=== PATIENT | female | born 1955 | race Caucasian/White ===

== ENCOUNTER 2019-11-27 14:16 | Inpatient (IN) | payer OTHER, MEDICAID ==
[~2019-11-27] VITALS: Ht 167.6 cm; Wt 108.4 kg
[2019-11-27 15:12] LABS: Anion Gap 7 (5-15); Blood Urea Nitrogen 43 mg/dL (7-18); Calcium 8.5 mg/dL (8.5-10.1); Carbon Dioxide 29 mmol/L (21-32); Chloride 100 mmol/L (98-107); Glucose 346 mg/dL (74-106); Magnesium 2.5 mg/dL (1.6-2.6); Potassium 4.2 mmol/L (3.5-5.1); Sodium 136 mmol/L (136-145)
[2019-11-27 15:18] LABS: Alanine Aminotransferase 28 U/L (13-56); Alkaline Phosphatase 101 U/L (45-117); Aspartate Aminotransferase 16 U/L (15-37); BUN/Creatinine Ratio 20.6; Bilirubin, Total 0.7 mg/dL (0.2-1.0); GFR African American 31 mL/min; GFR Non-African American 26 mL/min; Total Protein 7.5 g/dL (6.4-8.2)
[2019-11-27 15:38] LABS: INR 1.04 (0.9-1.15); Partial Thromboplastin Time 23.9 sec (23.64-32.05)
[2019-11-27 15:51] LABS: Basophils # (auto) 0.1 10 ^3/uL (0-0.2); Basophils % (auto) 0.8 % (0.0-2.0); Eosinophils # (auto) 0.3 10 ^3/uL (0-0.8); Eosinophils % (auto) 4.8 % (0.0-7.0); Hematocrit 30.1 % (36.0-46.0); Hemoglobin 10.6 g/dL (12.2-16.2); Lymphocytes # (auto) 1.6 10 ^3/uL (0.4-5.4); Lymphocytes % (auto) 22.6 % (10.0-50.0); Mean Corpuscular Hemoglobin 32.9 pg (28.0-32.0); Mean Corpuscular Hgb Conc. 35.1 g/dL (32.0-36.0); Mean Corpuscular Volume 93.7 fL (80.0-100.0); Monocytes # (auto) 0.6 10 ^3/uL (0-1.3); Monocytes % (auto) 7.9 % (0.0-12.0); Neutrophils # (auto) 4.5 10 ^3/uL (1.6-8.6); Neutrophils % (auto) 63.9 % (37.0-80.0); Platelet Count (auto) 136 10^3/uL (140-450); Red Blood Cells 3.21 10^6/uL (4.0-5.20); Red Cell Distribution Width 12.6 % (11.8-14.3)
[2019-11-27] MEDS ORDERED: NITROGLYCERIN 0.4 MG SL TAB SL PRN (17:45)
[2019-11-27] MEDS ORDERED: MORPHINE SULF INJ 2 MG/ML SYRINGE 1ML IV PRN ×2 (17:45→18:00)
[2019-11-27] MEDS ORDERED: IPRATROPIUM BROM 0.5 MG/2.5ML INH SOL NEB PRN (18:00)
[2019-11-27] MEDS ORDERED: ALBUTEROL SULF 2.5 MG/0.5ML(0.5%) NEB SOLN NEB PRN (18:00)
[2019-11-27] MEDS ORDERED: HYDROcodone-ACET 5/325MG TAB PO PRN (18:00)
[2019-11-27] MEDS ORDERED: ONDANSETRON HCL 4 MG/2 ML VIAL IV PRN (18:00)
[2019-11-27] MEDS ORDERED: DEXTROSE (50%) 50ML SYRG IV PRN (18:00)
[2019-11-27] MEDS ORDERED: ACETAMINOPHEN 500 MG TAB PO PRN (18:00)
[2019-11-27] MEDS: SODIUM CHLORIDE 0.9% 1,000 ML IV SCH (18:25)
[2019-11-27 18:42] VITALS: BP 151/69
[2019-11-27 21:00] VITALS: BP 147/76
--- NOTE | 2019-11-27 21:31 | NUR ---
Telemetry admit from [facility] admitted to Telemetry unit after SBAR received. Patient oriented to KELVIN ALCANTAR, MARY LOU primary RN, unit, room 214, bed B and unit policies regarding patient care and visiting hours. Patient now on continuous telemetry monitoring, tele box #43 and telemetry reading on arrival to unit is SR 68. Patient VS taken, weighed by bedscale and encouraged to call if they need something. All questions and concerns addressed, patient verbalized understanding.
[2019-11-27] MEDS: ACCU-CHEK COMFORT CURVE STRIP VI SCH (22:06)
[2019-11-27] MEDS: InsuLIN REG 1unit/0.01ml Soln (100units/ml) SC SCH (22:06)
[2019-11-27 23:30] VITALS: BP 147/76
[2019-11-28 05:22] VITALS: BP 152/61
[2019-11-28 05:30] LABS: Basophils # (auto) 0 10 ^3/uL (0-0.2); Basophils % (auto) 0.5 % (0.0-2.0); Eosinophils # (auto) 0.3 10 ^3/uL (0-0.8); Eosinophils % (auto) 3.5 % (0.0-7.0); Hematocrit 29.7 % (36.0-46.0); Hemoglobin 10.5 g/dL (12.2-16.2); Lymphocytes # (auto) 1.7 10 ^3/uL (0.4-5.4); Lymphocytes % (auto) 22.3 % (10.0-50.0); Mean Corpuscular Hemoglobin 32.8 pg (28.0-32.0); Mean Corpuscular Hgb Conc. 35.3 g/dL (32.0-36.0); Mean Corpuscular Volume 92.8 fL (80.0-100.0); Monocytes # (auto) 0.5 10 ^3/uL (0-1.3); Monocytes % (auto) 6.5 % (0.0-12.0); Neutrophils # (auto) 5.2 10 ^3/uL (1.6-8.6); Neutrophils % (auto) 67.2 % (37.0-80.0); Nucleated Red Blood Cells % 0.1 %; Platelet Count (auto) 137 10^3/uL (140-450); Red Cell Distribution Width 12.9 % (11.8-14.3); White Blood Cell 7.7 10^3/uL (4.4-10.8)
[2019-11-28 05:43] LABS: Calcium 8.6 mg/dL (8.5-10.1); Potassium 4.3 mmol/L (3.5-5.1)
[2019-11-28 05:48] LABS: BUN/Creatinine Ratio 21.3
[2019-11-28] MEDS: ACCU-CHEK COMFORT CURVE STRIP VI SCH ×4 (06:40→22:20)
[2019-11-28] MEDS: InsuLIN REG 1unit/0.01ml Soln (100units/ml) SC SCH ×3 (06:42→17:00)
--- NOTE | 2019-11-28 07:11 | NUR ---
Respiratory note: HR 78, RR 14, SPO2 98% ON RA, BS CLEAR. PRN MED NEB TX NOT INDICATED AT THIS TIME. NO SIGNS OR SYMPTOMS OF RESPIRATORY DISTRESS NOTED AT THIS TIME.PT INFORMED TO HIT CALL BUTTON IF FEELING SOB OR WHEEZING
[2019-11-28] MEDS: SODIUM CHLORIDE 0.9% 1,000 ML IV SCH ×2 (07:20→20:40)
--- NOTE | 2019-11-28 07:20 | NUR ---
OPENING NOTE ASSUMED CARE OF PT. ALERT AND ORIENTED. NO S/S OF SOB/DISTRESS NOTED. BED SET TO LOWEST POSITION/LOCKED. BEDSIDE RAILS UP X2. CALL LIGHT WITHIN REACH. INSTRUCTED PATIENT TO CALL FOR ASSISTANCE. UPDATED PT ON PLAN OF CARE. PT VERBALIZED UNDERSTANDING. WILL CONTINUE TO MONITOR Q1HR AND PRN.
[2019-11-28] MEDS ORDERED: AMLO5TAB15 PO (07:35)
[2019-11-28 08:00] VITALS: BP 153/57
[2019-11-28] MEDS: FAMOTIDINE 20 MG TAB PO SCH (09:54)
[2019-11-28 12:00] VITALS: BP 158/69
[2019-11-28] MEDS ORDERED: INSLISPI SC ×2 (15:44)
[2019-11-28] MEDS ORDERED: FURO40TA4 PO (15:44)
[2019-11-28] MEDS ORDERED: TRAM50TA2 PO (15:44)
[2019-11-28] MEDS ORDERED: CLON0.2D6 PO (15:44)
[2019-11-28] MEDS ORDERED: CARV12.544 PO (15:44)
[2019-11-28] MEDS ORDERED: BENA40TA7 PO (15:44)
[2019-11-28] MEDS ORDERED: MONT10TA34 OR (15:44)
[2019-11-28] MEDS ORDERED: INSLANTI SC (15:44)
[2019-11-28] MEDS ORDERED: CHOL20007 PO (15:44)
[2019-11-28] MEDS ORDERED: SITA100T7 PO (15:44)
[2019-11-28] MEDS ORDERED: METF-370 PO (15:44)
[2019-11-28] MEDS ORDERED: ATOR40TA52 PO (15:44)
[2019-11-28] MEDS ORDERED: FOLI1TAB6 PO (15:44)
[2019-11-28] MEDS ORDERED: GABA300C10 PO (15:44)
[2019-11-28 17:00] VITALS: BP 156/68
--- NOTE | 2019-11-28 17:02 | NUR ---
URINE URINE SAMPLE COLLECTED AND SENT TO LAB.
[2019-11-28] MEDS ORDERED: metFORMIN HYDROCHLORIDE 500 MG TAB PO SCH (18:00)
[2019-11-28] MEDS: FUROSEMIDE 40 MG TAB PO SCH (18:00)
[2019-11-28] MEDS: Glucerna Carbsteady SHAKE Vanilla 8oz PO SCH (18:00)
--- NOTE | 2019-11-28 18:12 | NUR ---
PT ASSESSED FOR PRN MED NEB TX. SPO2 97% ON RA, HR 74. PT DENIES ANY RESPIRATORY DISTRESS. NO TX INDICATED. WILL CONTINUE TO MONITOR.
[2019-11-28 18:34] LABS: Urine Bacteria MANY /hpf (None Seen); Urine Blood 2+ /uL (Negative); Urine Specific Gravity 1.014 (1.001-1.035); Urine WBC 2508 /hpf (0 - 5); Urine WBC Clumps PRESENT /hpf (None Seen)
[2019-11-28] MEDS ORDERED: DEXTROSE (50%) 50ML SYRG IV PRN (20:30)
[2019-11-28] MEDS: cloNIDine HCL 0.1 MG TAB PO SCH (20:47)
[2019-11-28] MEDS: ATORVASTATIN 20 MG TAB PO SCH (20:48)
[2019-11-28] MEDS: GABAPENTIN 300 MG CAP PO SCH (20:48)
[2019-11-28] MEDS: CARVEDILOL 12.5 MG TAB PO SCH (20:48)
[2019-11-28 22:00] VITALS: BP 171/78
[2019-11-28] MEDS ORDERED: INSULIN LANTUS (GLARGINE) 1 /0.01ml (100units/ml) SC SCH (22:00)
[2019-11-28] MEDS ORDERED: InsuLIN REG 1unit/0.01ml Soln (100units/ml) SC SCH (22:00)
[2019-11-29 05:04] VITALS: BP 142/67
[2019-11-29] MEDS: FUROSEMIDE 40 MG TAB PO SCH ×2 (06:08→18:30)
[2019-11-29] MEDS: ACCU-CHEK COMFORT CURVE STRIP VI SCH ×4 (06:34→22:23)
[2019-11-29 06:49] LABS: Basophils # (auto) 0 10 ^3/uL (0-0.2); Basophils % (auto) 0.4 % (0.0-2.0); Eosinophils # (auto) 0.2 10 ^3/uL (0-0.8); Eosinophils % (auto) 2.2 % (0.0-7.0); Hematocrit 29.2 % (36.0-46.0); Hemoglobin 10.2 g/dL (12.2-16.2); Lymphocytes # (auto) 1.3 10 ^3/uL (0.4-5.4); Lymphocytes % (auto) 19.4 % (10.0-50.0); Mean Corpuscular Volume 94.4 fL (80.0-100.0); Monocytes # (auto) 0.5 10 ^3/uL (0-1.3); Monocytes % (auto) 6.9 % (0.0-12.0); Neutrophils # (auto) 4.9 10 ^3/uL (1.6-8.6); Neutrophils % (auto) 71.1 % (37.0-80.0); Platelet Count (auto) 125 10^3/uL (140-450); Red Cell Distribution Width 12.5 % (11.8-14.3)
[2019-11-29 07:00] LABS: Anion Gap 4 (5-15); BUN/Creatinine Ratio 18.1; Blood Urea Nitrogen 28 mg/dL (7-18); Calcium 8.9 mg/dL (8.5-10.1); Carbon Dioxide 28 mmol/L (21-32); Chloride 106 mmol/L (98-107); GFR African American 44 mL/min; GFR Non-African American 36 mL/min; Glucose 361 mg/dL (74-106); Potassium 4.5 mmol/L (3.5-5.1); Sodium 138 mmol/L (136-145)
[2019-11-29] MEDS ORDERED: InsuLIN REG 1unit/0.01ml Soln (100units/ml) SC SCH (07:00)
--- NOTE | 2019-11-29 07:35 | NUR ---
Opening Shift Note Assumed care of patient, awake and alert. No S/S of distress/SOB or pain reported at this time, currently on room air, noted BLE +2 edema, no pain reported. Instructed on POC and to call for assist PRN, call light within reach, will continue to monitor for changes Q1hr and PRN.
[2019-11-29 08:00] VITALS: BP 141/70
[2019-11-29] MEDS: Glucerna Carbsteady SHAKE Vanilla 8oz PO SCH ×3 (08:00→18:25)
--- NOTE | 2019-11-29 08:00 | NUR ---
Respiratory note: PT IS RESTING COMFORTABLY. IS IN NO RESPIRATORY DISTRESS. SPO2 97% ON RA, HR 71, RR 18, BS CLEAR BILATERALLY. PRN MEDNEB TX NOT INDICATED. PT INFORMED TO PUSH CALL BUTTON IF INCREASED WOB, SOB, OR WHEEZING OCCURS.
[2019-11-29] MEDS ORDERED: cefTRIAXone 1GM/50ML D5W 50 ML IV ONE (09:45)
[2019-11-29] MEDS: SODIUM CHLORIDE 0.9% 1,000 ML IV SCH ×2 (10:00→23:20)
[2019-11-29] MEDS: BENAZEPRIL HCL 10 MG TAB PO SCH ×2 (10:00→10:39)
[2019-11-29] MEDS: cloNIDine HCL 0.1 MG TAB PO SCH ×2 (10:39→22:28)
[2019-11-29] MEDS: FAMOTIDINE 20 MG TAB PO SCH (10:40)
[2019-11-29] MEDS: CARVEDILOL 12.5 MG TAB PO SCH ×2 (10:40→22:27)
[2019-11-29 12:00] VITALS: BP 150/79
--- NOTE | 2019-11-29 12:00 | NUR ---
CRITICAL BS BS 430, REPEATED AND BS 456, PT ASYMPTOMATIC, DR CARREON NOTIFIED, ORDERS RECEIVED TO CHANGE SLIDING SCALE TO AGGRESSIVE, CONT CARE
--- NOTE | 2019-11-29 12:20 | NUR ---
COVERED CRITICAL BS WITH 20 UNITS PER AGGRESSIVE SLIDING SCALE PER DR RODRIGUEZ, CONT CARE
[2019-11-29] MEDS: InsuLIN REG 1unit/0.01ml Soln (100units/ml) SC SCH ×3 (12:30→22:22)
--- NOTE | 2019-11-29 13:39 | NUR ---
CARDIO AT BEDSIDE DR NELSON AT BEDSIDE DISCUSSING POC, CONT CARE
[2019-11-29] MEDS ORDERED: DEXTROSE (50%) 50ML SYRG IV PRN (13:45)
--- NOTE | 2019-11-29 13:50 | NUR ---
BS 400 NO NEW ORDERS TO ADMINISTER INSULIN, PT ASYMPTOMATIC, NO C/O OF ANY DISTRESS, CALL LIGHT WITHIN REACH, CONT CARE
[2019-11-29 16:57] VITALS: BP 137/73
[2019-11-29] MEDS: metFORMIN HYDROCHLORIDE 500 MG TAB PO SCH (18:30)
--- NOTE | 2019-11-29 19:20 | NUR ---
Opening Shift Note Assumed care of patient, awake and alert. No S/S of distress/SOB or pain. Instructed on POC and to call for assistance PRN, will continue to monitor for changes Q1hr and PRN. Safety precautions maintained bed is in lowest position and bed rails 2x. Call light and bedside table are within reach.
--- NOTE | 2019-11-29 20:00 | NUR ---
Respiratory note: PT ASSESSED FOR PRN MED NEB TX. HR 73, RR 16, SPO2 96% ON RA. NO SIGNS OF ANY RESPIRATORY DISTRESS NOTED. ADVISED PT TO CALL IF TX IS NEEDED.
[2019-11-29 22:00] VITALS: BP 156/67
[2019-11-29] MEDS: INSULIN LANTUS (GLARGINE) 1 /0.01ml (100units/ml) SC SCH (22:22)
[2019-11-29] MEDS: GABAPENTIN 300 MG CAP PO SCH (22:26)
[2019-11-29] MEDS: ATORVASTATIN 20 MG TAB PO SCH (22:26)
[2019-11-29] MEDS ORDERED: LORazepam 2MG/ML-1ML VIAL IV PRN (22:30)
[2019-11-30 04:56] VITALS: BP 142/73
[2019-11-30] MEDS: FUROSEMIDE 40 MG TAB PO SCH (06:15)
[2019-11-30 06:29] LABS: Basophils # (auto) 0 10 ^3/uL (0-0.2); Basophils % (auto) 0.6 % (0.0-2.0); Eosinophils # (auto) 0.2 10 ^3/uL (0-0.8); Eosinophils % (auto) 3.3 % (0.0-7.0); Hematocrit 28.4 % (36.0-46.0); Hemoglobin 10.2 g/dL (12.2-16.2); Lymphocytes # (auto) 1.6 10 ^3/uL (0.4-5.4); Lymphocytes % (auto) 21.2 % (10.0-50.0); Mean Corpuscular Hemoglobin 33.5 pg (28.0-32.0); Mean Corpuscular Hgb Conc. 35.8 g/dL (32.0-36.0); Mean Corpuscular Volume 93.5 fL (80.0-100.0); Monocytes # (auto) 0.5 10 ^3/uL (0-1.3); Monocytes % (auto) 6.4 % (0.0-12.0); Neutrophils # (auto) 5.1 10 ^3/uL (1.6-8.6); Neutrophils % (auto) 68.5 % (37.0-80.0); Platelet Count (auto) 128 10^3/uL (140-450); Red Blood Cells 3.04 10^6/uL (4.0-5.20); Red Cell Distribution Width 12.7 % (11.8-14.3); White Blood Cell 7.4 10^3/uL (4.4-10.8)
[2019-11-30 06:51] LABS: Calcium 8.8 mg/dL (8.5-10.1)
[2019-11-30] MEDS: InsuLIN REG 1unit/0.01ml Soln (100units/ml) SC SCH ×4 (06:54→22:13)
[2019-11-30 06:55] LABS: BUN/Creatinine Ratio 17.6
[2019-11-30] MEDS: ACCU-CHEK COMFORT CURVE STRIP VI SCH ×4 (07:02→22:01)
--- NOTE | 2019-11-30 08:29 | NUR ---
Respiratory note: PRN MED NEB TX NOT INDICATED OR WANTED BY PT. PT HAS NOT TAKEN ANY PRN MED NEB TXS. HR 77, RR 14, SPO2 98% ON RA. BS CLEAR. NO SIGNS OR SYMPTOMS OF RESPIRATORY DISTRESS NOTED AT THIS TIME. Addendum: 11/30/19 at 0836 by CAROL ALVARADO RT PT STATES SHE HAS NOT TAKEN HER INHALER FOR OVER 7 MONTHS.
--- NOTE | 2019-11-30 08:30 | NUR ---
Dry, hyperpigmentation noted on the lower extremities. Scabbed, dry skin tears on the right great toe noted.
[2019-11-30] MEDS: Glucerna Carbsteady SHAKE Vanilla 8oz PO SCH ×3 (08:59→17:24)
[2019-11-30] MEDS: metFORMIN HYDROCHLORIDE 500 MG TAB PO SCH ×2 (08:59→17:30)
[2019-11-30] MEDS: cefTRIAXone 1GM/50ML D5W 50 ML IV SCH (09:00)
--- NOTE | 2019-11-30 09:00 | NUR ---
Accu check = 263 mg/dl. Metformin PO given.
[2019-11-30 09:01] VITALS: BP 134/77
[2019-11-30] MEDS: FAMOTIDINE 20 MG TAB PO SCH (09:24)
[2019-11-30] MEDS: CARVEDILOL 12.5 MG TAB PO SCH ×2 (09:24→21:59)
[2019-11-30] MEDS: BENAZEPRIL HCL 10 MG TAB PO SCH (09:24)
[2019-11-30] MEDS: cloNIDine HCL 0.1 MG TAB PO SCH ×2 (09:25→21:58)
[2019-11-30] MEDS: amLODIPine BESYLATE 5 MG TAB PO SCH (09:25)
--- NOTE | 2019-11-30 09:30 | NUR ---
Photos taken of the right great toe, left foot, bilateral lower extremities. Wound Care forms placed on the Wound Care tray. Camera returned to [facility].
--- NOTE | 2019-11-30 10:25 | NUR ---
Dr. Millard came over to see the patient. MD to keep the patient for another day. Dr. Millard ordered to follow up the Echo results as per Dr. Quintanilla.
--- NOTE | 2019-11-30 10:30 | NUR ---
Called Admissions Representative Unit. Phone on voicemail. Left a message to follow up the Echo results.
--- NOTE | 2019-11-30 10:40 | NUR ---
Spoke with JOSE ELIAS Hargrove regarding the Echo results unavailable at this time. Beena to follow up with Dr. Quintanilla.
[2019-11-30] MEDS: SODIUM CHLORIDE 0.9% 1,000 ML IV SCH (11:17)
[2019-11-30 12:39] VITALS: BP 138/74
[2019-11-30 16:49] VITALS: BP 120/66
--- NOTE | 2019-11-30 19:00 | NUR ---
Dr. Duran has seen the patient for follow up Neurology Consult.
--- NOTE | 2019-11-30 19:10 | NUR ---
Patient approached me at the Nurse Station, stated she wants to talk to the doctor who came over this morning. Explained to patient Dr. Millard will come back tomorrow.
[2019-11-30] MEDS: ATORVASTATIN 20 MG TAB PO SCH (21:58)
[2019-11-30 22:00] VITALS: BP 144/68
[2019-11-30] MEDS: GABAPENTIN 300 MG CAP PO SCH (22:00)
[2019-11-30] MEDS: INSULIN LANTUS (GLARGINE) 1 /0.01ml (100units/ml) SC SCH (22:15)
--- NOTE | 2019-12-01 00:33 | NUR ---
11/30/2019. 1939. MET PATIENT IN HER ROOM SITTING ON HER BED ALERT AND ORIENTED. DENIED PAIN. AMBULATES FREELY.
[2019-12-01] MEDS: SODIUM CHLORIDE 0.9% 1,000 ML IV SCH ×2 (02:22→15:20)
--- NOTE | 2019-12-01 02:51 | NUR ---
PATIENT SLEEPING AT THIS TIME.
[2019-12-01 05:00] VITALS: BP 133/73
[2019-12-01 06:36] LABS: Basophils # (auto) 0 10 ^3/uL (0-0.2); Basophils % (auto) 0.6 % (0.0-2.0); Eosinophils # (auto) 0.3 10 ^3/uL (0-0.8); Eosinophils % (auto) 3.8 % (0.0-7.0); Hematocrit 30.6 % (36.0-46.0); Hemoglobin 10.6 g/dL (12.2-16.2); Lymphocytes # (auto) 1.8 10 ^3/uL (0.4-5.4); Lymphocytes % (auto) 24.7 % (10.0-50.0); Mean Corpuscular Hemoglobin 32.6 pg (28.0-32.0); Mean Corpuscular Hgb Conc. 34.6 g/dL (32.0-36.0); Mean Corpuscular Volume 94.1 fL (80.0-100.0); Monocytes # (auto) 0.4 10 ^3/uL (0-1.3); Neutrophils # (auto) 4.8 10 ^3/uL (1.6-8.6); Neutrophils % (auto) 64.9 % (37.0-80.0); Nucleated Red Blood Cells % 0.1 %; Platelet Count (auto) 127 10^3/uL (140-450); Red Blood Cells 3.25 10^6/uL (4.0-5.20); Red Cell Distribution Width 12.5 % (11.8-14.3); White Blood Cell 7.3 10^3/uL (4.4-10.8)
[2019-12-01] MEDS: ACCU-CHEK COMFORT CURVE STRIP VI SCH ×2 (06:38→12:16)
[2019-12-01] MEDS: InsuLIN REG 1unit/0.01ml Soln (100units/ml) SC SCH ×2 (06:44→14:01)
[2019-12-01 07:11] LABS: BUN/Creatinine Ratio 17.6; Calcium 8.6 mg/dL (8.5-10.1)
[2019-12-01 08:00] VITALS: BP 130/68
--- NOTE | 2019-12-01 08:10 | NUR ---
Patient sitting up in chair, awake, oriented x4. No acute distress noted.
--- NOTE | 2019-12-01 08:45 | NUR ---
Dr. Duran at bedside talking to the patient for Neurology follow up.
[2019-12-01] MEDS: metFORMIN HYDROCHLORIDE 500 MG TAB PO SCH (08:53)
[2019-12-01] MEDS: cefTRIAXone 1GM/50ML D5W 50 ML IV SCH (08:53)
[2019-12-01] MEDS: Glucerna Carbsteady SHAKE Vanilla 8oz PO SCH ×2 (08:54→12:16)
[2019-12-01] MEDS ORDERED: FUROSEMIDE 40 MG TAB PO SCH (10:00)
[2019-12-01] MEDS: amLODIPine BESYLATE 5 MG TAB PO SCH (10:09)
[2019-12-01] MEDS: FAMOTIDINE 20 MG TAB PO SCH (10:09)
[2019-12-01] MEDS: BENAZEPRIL HCL 10 MG TAB PO SCH (10:09)
[2019-12-01] MEDS: CARVEDILOL 12.5 MG TAB PO SCH (10:09)
[2019-12-01] MEDS: cloNIDine HCL 0.1 MG TAB PO SCH (10:12)
[2019-12-01 12:00] VITALS: BP 125/69
[2019-12-01 14:35] VITALS: BP 125/69
--- NOTE | 2019-12-01 15:10 | NUR ---
Discharge instructions given as ordered. Encourage to follow up with PMD as instructed. All questions and concerns addressed. Patient verbalized understanding. Medication reconciliation form completed and copy given to patient. IV removed with catheter intact, pressure dressing applied. Telemetry unit returned to ICU. Patient taken to vehicle via wheelchair with all personal belongings, accompanied by staff. Family member waiting at the main lobby. No distress noted at time of departure.
== END 2019-12-01 15:10 | disposition home or self-care (01) | DRG 689 ==
LOC: EDBD 14:16 → ER 14:16 → TELE 14:17 → TELE-CENTR 20:10
PROVIDERS: ADMIT Nurse Practitioner Acute Care; ATTEND Internal Medicine
DX: N39.0 Urinary tract infection, site not specified (principal); N17.0 Acute kidney failure with tubular necrosis; E44.0 Moderate protein-calorie malnutrition; I13.0 Hypertensive heart and chronic kidney disease with heart failure and stage 1 through stage 4 chronic kidney disease, or unspecified chronic kidney disease; I50.32 Chronic diastolic (congestive) heart failure; N18.4 Chronic kidney disease, stage 4 (severe); I12.9 Hypertensive chronic kidney disease with stage 1 through stage 4 chronic kidney disease, or unspecified chronic kidney disease; J45.909 Unspecified asthma, uncomplicated; E11.22 Type 2 diabetes mellitus with diabetic chronic kidney disease; E11.65 Type 2 diabetes mellitus with hyperglycemia; I35.0 Nonrheumatic aortic (valve) stenosis; E66.9 Obesity, unspecified; D50.9 Iron deficiency anemia, unspecified; E78.5 Hyperlipidemia, unspecified; B96.20 Unspecified Escherichia coli [E. coli] as the cause of diseases classified elsewhere; D63.8 Anemia in other chronic diseases classified elsewhere; D69.6 Thrombocytopenia, unspecified; E11.42 Type 2 diabetes mellitus with diabetic polyneuropathy; E86.0 Dehydration; I65.21 Occlusion and stenosis of right carotid artery; L98.9 Disorder of the skin and subcutaneous tissue, unspecified; M20.40 Other hammer toe(s) (acquired), unspecified foot; M19.90 Unspecified osteoarthritis, unspecified site; G40.909 Epilepsy, unspecified, not intractable, without status epilepticus; K58.9 Irritable bowel syndrome, unspecified; Z82.49 Family history of ischemic heart disease and other diseases of the circulatory system; Z83.3 Family history of diabetes mellitus; Z90.710 Acquired absence of both cervix and uterus; Z79.4 Long term (current) use of insulin; Z79.84 Long term (current) use of oral hypoglycemic drugs; Z79.899 Other long term (current) drug therapy; Z68.38 Body mass index [BMI] 38.0-38.9, adult
CPT/HCPCS: 36415; 70450; 71045; 80048; 80053; 80061; 81001; 82962; 83036; 83735; 83880; 84443; 84484; 85025; 85610; 85730; 87086; 87088; 87186; 93005; 93306; 93886; 96360; 97163; G0378; J0696; J1815